=== PATIENT | male | born 1950 | race Hispanic/Latino ===

== ENCOUNTER 2021-01-26 07:03 | Day surgery (SDC) | payer OTHER ==
--- NOTE | 2021-01-22 18:23 | EKG ---
Test Date: 2021-01-22 Test Time: 14:18:45 Planer Off Bearer: VERA MEASUREMENT RESULTS: Intervals: Rate: 64 LA: 122 QRSD: 94 QT: 412 QTc: 425 [place]: P: LA: 122 QRS: 115 T: 79 INTERPRETIVE STATEMENTS: Normal sinus rhythm Right ventricular hypertrophy Abnormal ECG Compared to ECG 01/16/2017 10:06:25 Right ventricular hypertrophy now present Myocardial infarct finding no longer present Electronically Signed On 01-22-21 18:23:18 STEAM FITTER SUPERVISOR MAINTENANCE by Ector Xavier
[2021-01-26] MEDS ORDERED: Ringers Lactate 1,000 ML IV ONE (07:07)
[2021-01-26] MEDS ORDERED: LIDOCAINE 1% W/EPI 1:100,000 MDV 20 ML VIAL ONE (07:15)
[2021-01-26] MEDS ORDERED: BACITRACIN OINTMENT 14 GM TUBE TOP ONE (07:15)
[2021-01-26] MEDS ORDERED: ROCURONIUM 50 MG/5 ML VIAL IV ONE (07:20)
[2021-01-26] MEDS ORDERED: propofoL 200 MG/20 ML VIAL IV ONE (07:20)
[2021-01-26] MEDS ORDERED: LIDOCAINE 1% MPF 5 ML VIAL ONE (07:20)
[2021-01-26] MEDS ORDERED: FENTANYL CITR 100 MCG/2 ML ONE (07:20)
[2021-01-26] MEDS ORDERED: LIDOCAINE JELLY 2%- 5 ML TUBE ONE (07:27)
[2021-01-26] MEDS ORDERED: OXYMETAZOLINE HCL 0.05% 15ML NAS ONE (07:47)
[2021-01-26] MEDS: OXYMETAZOLINE HCL 0.05% 15ML NAS ONE ×2 (07:48→08:24)
[2021-01-26] MEDS ORDERED: ONDANSETRON 4 MG/2 ML VIAL ONE (08:08)
[2021-01-26] MEDS ORDERED: NEOSTIGMINE 1 MG/ML -5 ML ONE (08:43)
[2021-01-26] MEDS ORDERED: GLYCOPYRROLATE 0.2 MG/ML SYR ONE (08:43)
[2021-01-26] MEDS ORDERED: Mastisol Adhesive Liq ONE (08:56)
--- NOTE | 2021-01-26 09:21 | P.BOP ---
Preoperative diagnosis: septal deviation, nasal valve collapse, nasal obstruction Postoperative diagnosis: same Primary procedure: septoplasty Secondary procedure: repair nasal valve with implant Core Placer: NONE,NONE Estimated blood loss: 10ml Specimen: septal bone fragments Findings: large right septal spur Anesthesia: General Complications: None Implants: Latera to bilateral nose Fluids & blood products: 600ml crystalloid Transferred to: Recovery Room Condition: Good
[2021-01-26 09:47] VITALS: BP 142/69; TEMP 97.1; O2SAT 100
[2021-01-26] MEDS ORDERED: TRAMADOL HCL 50 MG TAB ONE (09:47)
== END 2021-01-26 10:50 | disposition home or self-care (01) ==
LOC: OR 07:03
PROVIDERS: ATTEND Otolaryngology
PROC: 09SM0ZZ Reposition Nasal Septum, Open Approach (ICD-10-PCS; principal; 2021-01-26 08:00)
DX: J34.2 Deviated nasal septum (principal); J32.0 Chronic maxillary sinusitis; J31.0 Chronic rhinitis; J34.89 Other specified disorders of nose and nasal sinuses; R06.02 Shortness of breath; Z20.822 Contact with and (suspected) exposure to COVID-19
CPT/HCPCS: 93005; 88300; 87077 ×2; 87186 ×2; 87070; 30520; U0003; J2704; J3010; J2710; J7120; J2405

== ENCOUNTER 2024-03-22 07:00 | Day surgery (SDC) | payer OTHER ==
[2024-03-18 15:47] LABS: Absolute Eosinophils 0.1 K/uL (0-0.5); Absolute Lymphocytes (CBC) 2.6 K/uL (0.7-4.9); Absolute Monocytes 0.8 K/uL (0.1-1.3); Absolute Neutrophil 5.1 K/uL (1.8-8.0); Basophils % 0.3 % (0-1.3); Eosinophils % 1.3 % (0-4.4); Hematocrit 43.2 % (39.6-49.0); Hemoglobin 14.3 g/dL (13.6-17.9); Lymphocytes % 29.8 % (15.3-44.8); MCH 31.5 pg (27.0-35.0); MCHC 33.1 g/dL (32.0-36.0); MCV 94.9 fL (80-100); MPV 9.6 fL (7.6-11.3); Monocytes % 9.6 % (3.3-12.3); Nucleated Red Blood Cells % 0.1 % (0-0); Platelets 107 thou/uL (152-406); RBC Red Blood Cell Count 4.55 M/uL (4.33-5.43); Red Cell Distribution Width 13.4 % (12.1-15.2)
[2024-03-18 15:55] LABS: PT Prothrombin Time 11.6 SECONDS (9.4-12.5); PTT, Activated Partial Thromb 23.6 SECONDS (24.3-36.9); Protime INR 1.04
--- NOTE | 2024-03-18 15:55 | RAD REPORT ---
EXAMINATION: TWO VIEW CHEST XR CLINICAL INDICATION: pre op for manager cardiac cath TECHNIQUE: 2 views of the chest was performed. COMPARISON: 01/16/2017 FINDINGS: The lungs are hyperexpanded suggesting COPD. The heart is upper limit of normal in size. No displaced fractures evident. IMPRESSION: COPD is suspected without acute finding identified. The USPSTF recommends annual screening for lung cancer with low-dose computed tomography (LDCT) in ad ults aged 50 to 80 years who have a 20 pack-year smoking history and currently smoke or have quit within the past 15 years. Screening should be discontinued once a person has not smoked for 15 years or develops a health problem that substantially limits life expectancy or the ability or willingness to have curative lung surgery.
[2024-03-18 16:00] LABS: Anion Gap 7.8 mEq/L (5.0-15.0); Potassium 3.8 mEq/L (3.5-5.1)
--- NOTE | 2024-03-19 12:42 | EKG ---
Test Date: 2024-03-18 Test Time: 16:24:01 [place] Worker: PREO MEASUREMENT RESULTS: Intervals: Rate: 71 CT: 126 QRSD: 114 QT: 406 QTc: 441 [place]: P: 55 CT: 126 QRS: 78 T: 214 INTERPRETIVE STATEMENTS: Normal sinus rhythm Inferior infarct, age undetermined Anterolateral infarct, age undetermined Abnormal ECG Compared to ECG 01/22/2021 14:18:45 Myocardial infarct finding now present Right ventricular hypertrophy no longer present Electronically Signed On 03-19-24 12:40:24 SURVEY RESEARCH TEACHER by Fady Noyola
[2024-03-22] MEDS ORDERED: NA CHLORIDE 0.9% 500 ML ONE (07:07)
[2024-03-22] MEDS ORDERED: HEPA 1000U/500MLS 1,000 UNIT/500 ML BAG IV ONE ×2 (07:13→07:16)
[2024-03-22] MEDS ORDERED: HEPARIN 5000 UNIT/ML 1 ML VIAL ONE (07:13)
[2024-03-22] MEDS ORDERED: HEPARIN 10,000 UNIT/10 ML VIAL IV ONE (07:13)
[2024-03-22] MEDS ORDERED: MIDAZOLAM HCL 2 MG/2 ML INJ ONE (07:16)
[2024-03-22] MEDS ORDERED: LIDOCAINE 1% 20 ML MDV ONE (07:16)
[2024-03-22] MEDS ORDERED: NITROGLYCERIN/D5W 50 MG/250 ML BTL IV ONE (07:16)
[2024-03-22] MEDS ORDERED: CLOPIDOGREL 75 MG TABLET ONE (07:17)
[2024-03-22] MEDS ORDERED: ASPIRIN 325 MG TAB ONE (07:17)
[2024-03-22] MEDS ORDERED: TICAGRELOR 90 MG TABLET PO ONE (07:17)
[2024-03-22] MEDS ORDERED: FENTANYL CITR 100 MCG/2 ML ONE (07:17)
[2024-03-22] MEDS ORDERED: ATROPINE SULF 1 MG/10 ML SYR IV ONE (07:18)
[2024-03-22 07:19] VITALS: TEMP 97.8
[2024-03-22 10:19] VITALS: BP 122/68; O2SAT 97
--- NOTE | 2024-03-22 20:38 | OP ---
Date of Procedure: 03/22/2024 Surgeon: Fady Noyola Procedure Performed: Selective coronary angiogram. Indication For Procedure: Unstable angina, abnormal stress test. Complications: None. Estimated Blood Loss: Less than 50 cc. Access: Right radial, closed by TR band. Sedation Time: 20 minutes with 1 of Versed and 25 of fentanyl. Description Of Procedure: After risks, and benefits, and alternatives were explained to the patient, patient agreed to proceed with procedure and signed informed consent. The patient was brought back to the laborer [facility], prepped and draped in sterile fashion. Time-out was performed. Sedation was admini stered. Next, the right radial access was obtained using ultrasound-guided micropuncture technique. [place] 4.0 catheter was advanced over a J-wire to the aortic root. Selective angiogram was done with this catheter. At the end of procedure, catheter was removed over a J-wire. Sheath was removed. T R band was applied. Hemostasis was achieved, and the patient was moved back to recovery room in stab le condition. Findings: 1.Patient got dextrocardia. 2.Left main; distal 60% disease. 3.LAD; diffuse atherosclerosis with proximal 50% disease, then mid 70% to 80% disease and then mild luminal irregularities. 4.Diagonal 1/diagonal 2; mild luminal irregularities. 5.Left circ with proximal 70% disease, then mild luminal irregularities. 6.OM1; mild luminal irregularities. 7.OM2; with a proximal 90% disease, then mild luminal irregularities. 8.RCA; small diffuse atherosclerosis with proximal 70% disease and then mid 70% disease before it co ntinues as a large RPDA that got mild luminal irregularities. Assessment And Plan: Significant left main, LAD, OM2, RCA disease. The plan will be to consult CT Surgery as an outpatient for CABG evaluation. SAGAR/PAULA Voice ID: [id number] Report ID: [id number]
== END 2024-03-22 10:15 | disposition home or self-care (01) ==
LOC: CCL 07:00
PROVIDERS: ATTEND Internal Medicine Interventional Cardiology
DX: I25.110 Atherosclerotic heart disease of native coronary artery with unstable angina pectoris (principal); Q24.0 Dextrocardia; I10 Essential (primary) hypertension; E78.2 Mixed hyperlipidemia; Z82.49 Family history of ischemic heart disease and other diseases of the circulatory system
CPT/HCPCS: 93005; 85025; 80048; 36415; 85610; 85730; 71046; 93454; 76937; C1893; Q9966; J1644; J2003; J2250; J3010; J7040; 99152; 99153; J0461

== ENCOUNTER 2025-01-05 07:20 | Day surgery (SDC) | payer OTHER ==
[2025-01-04 12:18] LABS: Absolute Lymphocytes (CBC) 2.2 K/uL (0.7-4.9); Hematocrit 46.1 % (39.6-49.0); Hemoglobin 15.0 g/dL (13.6-17.9); MCH 30.5 pg (27.0-35.0); MCHC 32.6 g/dL (32.0-36.0); MCV 93.5 fL (80-100); MPV 10.7 fL (7.6-11.3); Nucleated RBC Absolute Count 0.0 (0-0); Nucleated Red Blood Cells % 0.1 % (0-0); RBC Red Blood Cell Count 4.93 M/uL (4.33-5.43); White Blood Count 7.00 thou/uL (4.3-10.9)
[2025-01-04 12:26] LABS: PT Prothrombin Time 11.8 SECONDS (10-13.0); PTT, Activated Partial Thromb 29.8 SECONDS (27.2-37.4); Protime INR 1.05
[2025-01-04 12:30] LABS: Anion Gap 7.4 mEq/L (5.0-15.0); BUN Blood Urea Nitrogen 13.0 mg/dL (7-18); Glucose Level 101.0 mg/dL (74-106); Potassium 4.4 mEq/L (3.5-5.1)
--- NOTE | 2025-01-04 13:31 | RAD REPORT ---
EXAM: Chest Single View HISTORY: 74 years Male preop COMPARISON: 03/18/2024 FINDINGS: LUNGS/PLEURA: Coarsened pulmonary interstitium which is chronic. CARDIAC/MEDIASTINUM: The cardiac silhouette is within normal limits. UPPER ABDOMEN: No significant abnormality. BONES: Sternotomy. No acute abnormality. LINES/TUBES/OTHER: N/A IMPRESSION: Chronic interstitial lung changes without evidence of a superimposed acute process
[2025-01-05] MEDS ORDERED: FENTANYL CITR 100 MCG/2 ML ONE (08:12)
[2025-01-05] MEDS ORDERED: MIDAZOLAM HCL 2 MG/2 ML INJ ONE (08:13)
[2025-01-05] MEDS ORDERED: NA CHLORIDE 0.9% 500 ML ONE (08:13)
[2025-01-05] MEDS ORDERED: HEPA 1000U/500MLS 2,000 UNIT/1,000 ML BAG IV ONE (08:18)
[2025-01-05] MEDS ORDERED: HEPARIN 10,000 UNIT/10 ML VIAL IV ONE (08:18)
[2025-01-05] MEDS ORDERED: LIDOCAINE 1% 20 ML MDV ONE (08:18)
[2025-01-05 11:55] VITALS: BP 153/75; O2SAT 99
--- NOTE | 2025-01-05 12:49 | OP ---
Date of Procedure: 01/05/2025 Surgeon: Fady Noyola Procedure Performed: Selective coronary angiogram of bypass graft. Indication For Procedure: Dyspnea on exertion, abnormal cardiac output. Complications: None. Estimated Blood Loss: Less than 50 cc. Access: Right common femoral artery, closed by Mynx. Sedation Time: 30 minutes with 1 of Versed and 25 of fentanyl. Description Of Procedure: After risks, benefits, and alternatives were explained to the patient, the patient agreed to proceed with procedure and signed informed consent. The patient was brought back to the recyclable materials distributor, prepped and draped in sterile fashion. Time-out was performed. Sedation was admini stered. Next, right common femoral artery access was obtained using ultrasound-guided micropuncture technique. 6-[place] sheath was inserted. JL4 catheter was advanced over a J-wire to the aortic root . Selective angiogram of the left coronary system was done using that catheter, later which was exch anged with a JR4 catheter to the RCA, followed by angiogram of the SVG to the PDA and then that norah ter was pulled back to the subclavian, exchanged with an VANNA catheter for selective angiogram of the HARRIS bypass. At the end of procedure, catheter was removed over a J-wire. Sheath was removed. Mynx was applied. Hemostasis achieved and the patient was moved back to recovery in stable condition. Findings: 1. Left main, diffuse 50% disease. 2. LAD, proximal 100% occluded. 3. Left circ, very tortuous artery with proximal to mid segment that is very tortuous that got 60% to 70% disease. Continue as a saxman circ, gives an OM1 that got mid 70% to 80% disease. 4. RCA; small artery, diffuse, heavily calcified with diffuse 40% to 50% disease proximally to mid po rtions and then distal is 100% occluded. Grafts: 1. HARRIS to LAD is widely patent, supplied the whole anterior LAD. 2. SVG to RPDA with jump graft to OM, is ostial occluded. Assessment: 1. Significant saxman CAD. 2. Patent HARRIS to LAD. 3. Occluded SVG to PDA jump to OM. Plan: 1. We will continue aggressive medical management. 2. Left circ is very tortuous and it is not amenable for intervention. Also, RCA is very small and n ot amenable for intervention, so we will continue optimization of medical treatment. KEITH/MODL Voice ID: [id number] Report ID: [id number]
== END 2025-01-05 11:40 | disposition home health service (06) ==
LOC: CCL 07:20
PROVIDERS: ATTEND Internal Medicine Interventional Cardiology
DX: I25.10 Atherosclerotic heart disease of native coronary artery without angina pectoris (principal); I25.810 Atherosclerosis of coronary artery bypass graft(s) without angina pectoris; I25.82 Chronic total occlusion of coronary artery; Q24.0 Dextrocardia; I10 Essential (primary) hypertension; E78.2 Mixed hyperlipidemia; Z79.82 Long term (current) use of aspirin; Z79.899 Other long term (current) drug therapy; Z82.49 Family history of ischemic heart disease and other diseases of the circulatory system
CPT/HCPCS: 36415; 71045; 76937; 80048; 85025; 85610; 85730; 93005; 93455; 93459; 99152; C1760; C1893; J1644; J2003; J2250; J3010; J7040; Q9966